=== PATIENT | female | born 1935 | race Caucasian/White ===

== ENCOUNTER → 2016-12-09 | Outpatient (CLI) | payer MEDICARE, BC ==
--- NOTE | 2016-12-09 22:13 | PCVCIMAG ---
APPROVED REPORT Study performed: 12/09/2016 15:52:32 EXAM: Comprehensive 2D, Doppler, and color-flow Echocardiogram Status: routine Other Information Study Quality: Fair Indications Pre Op surgery. Hyperlipidemia. 2D Dimensions IVSd: 6.87 (7-11mm)LVOT Diam: 20.47 (18-24mm) LVDd: 29.77 mm PWd: 9.03 (7-11mm) LVDs: 25.60 (25-40mm) Left Atrium: 33.43 (27-40mm) Aortic Root: 30.35 mm LV Single Plane 2CH: 58.36 %Chaney's LVEF: 31.05 % Volumes Left Atrial Volume (Systole) Single Plane 4CH: 25.99 mLSingle Plane 2CH: 45.77 mL LA ESV Index: 19.00 mL/m2 Aortic Valve AoV Peak Sid.: 1.39 m/s AO Peak Gr.: 7.70 mmHgLVOT Max P.27 mmHg LVOT Max V: 0.90 m/s CHRISTINA Vmax: 2.14 cm2 Mitral Valve E/A Ratio: 0.9 MV Decel. Time: 264.09 ms MV E Max Sid.: 0.71 m/s MV A Sid.: 0.78 m/s IVRT: 117.65 ms Pulmonary Valve PV Peak Gr.: 1.38 mmHg Tricuspid Valve TR Peak Sid.: 2.62 m/s TR Peak Gr.: 27.51 mmHg Left Ventricle The left ventricle is normal size. There is normal LV segmental wall motion. There is normal left ventricular wall thickness. Left ventricular systolic function is normal. The left ventricular ejection fraction is within the normal range. LVEF is 55-60%. The left ventricular diastolic function is normal. Right Ventricle The right ventricle is normal size. The right ventricular systolic function is normal. Atria The left atrium size is normal. Echogenic mass vs artifact is noted. consider LOULOU The right atrium size is normal. Aortic Valve The aortic valve is normal in structure. No aortic regurgitation is present. There is no aortic valvular stenosis. Mitral Valve The mitral valve is normal in structure. There is no mitral valve regurgitation noted. No evidence of mitral valve stenosis. Tricuspid Valve The tricuspid valve is normal in structure. Trace tricuspid regurgitation. Pulmonary artery pressure is 34 mmhg. Pulmonic Valve The pulmonary valve is normal in structure. There is no pulmonic valvular regurgitation. Great Vessels The aortic root is normal in size. IVC is normal in size and collapses with >50% inspiration Pericardium There is no pericardial effusion. <Conclusion> The left ventricle is normal size. LVEF is 55-60%. The aortic valve is normal in structure. No aortic regurgitation is present. The mitral valve is normal in structure. There is no mitral valve regurgitation noted. The tricuspid valve is normal in structure. Trace tricuspid regurgitation. Pulmonary artery pressure is 34 mmhg. The pulmonary valve is normal in structure. Echogenic mass vs artifact is noted. consider LOULOU
== END | disposition home or self-care (01) ==
LOC: PCVCCLINIC 13:34
PROVIDERS: ATTEND Internal Medicine
DX: Z01.810 Encounter for preprocedural cardiovascular examination (principal); I07.1 Rheumatic tricuspid insufficiency; R06.00 Dyspnea, unspecified; E78.5 Hyperlipidemia, unspecified; M86.18 Other acute osteomyelitis, other site
CPT/HCPCS: 80061; 93306; G0463